=== PATIENT | male | born 1995 | race Caucasian/White ===

== ENCOUNTER 2017-07-24 10:28 | Emergency (ER) | payer MEDICAID ==
[~2017-07-24] VITALS: Ht 157.5 cm; Wt 116.5 kg
[2017-07-24 10:31] VITALS: Ht 157.5 cm; Wt 116.5 kg
--- NOTE | 2017-07-24 12:29 | RADRPT ---
PROCEDURE: XR Ankle. CLINICAL INDICATION: Injury TECHNIQUE: Three views of the right ankle are available for review COMPARISON: None available FINDINGS: There is marked widening of the medial clear space representing deltoid ligament injury. There is di sruption of the ankle mortise. No displaced fractures are identified. The talar dome is smooth. Ther e is marked soft tissue swelling about the ankle and presence of a tibiotalar joint effusion. IMPRESSION: 1. Disruption of the ankle mortise with marked widening of the medial clear space suggesting deltoi d ligament injury. Syndesmotic injury also cannot be excluded. 2. Marked soft tissue swelling and tibiotalar joint effusion. 3. Radiographs of the tibia / fibula are recommended. RPTAT: TT .Merrill Vega MD, MD Date Time Electronically viewed and signed by .Merrill Vega MD, MD on 07/24/2017 12:29 .d/
--- NOTE | 2017-07-24 12:32 | RADRPT ---
PROCEDURE: XR Foot. CLINICAL INDICATION: Foot/ankle injury TECHNIQUE: Three views of the right foot are available for review. COMPARISON: None available FINDINGS: There is no acute osseous or articular abnormality. No evidence for fracture seen at the mid or for efoot. Bone mineral density is preserved. The articular surfaces are smooth without evidence of mar ginal erosions. Os peroneum. Soft tissue swelling seen over the ankle and foot. There is a tibiotala r joint effusion. IMPRESSION: 1. No radiographic evidence for fracture of the mid or forefoot 2. Soft tissue swelling and tibiotalar joint effusion. RPTAT: TT .Merrill Vega MD, MD Date Time Electronically viewed and signed by .Merrill Vega MD, on 07/24/2017 12:32 .d/
--- NOTE | 2017-07-24 14:37 | RADRPT ---
PROCEDURE: Right knee series. CLINICAL INDICATION: Right knee pain TECHNIQUE: Three views of the right knee are available for review. COMPARISON: None available FINDINGS: There is normal mineralization and alignment of the bones of the right knee. No acute fracture or d islocation is identified. No joint effusion is seen. Overlying soft tissues are unremarkable. IMPRESSION: 1. Unremarkable right knee x-ray series. RPTAT: KK .Ambrocio Plaza MD, MD Date Time Electronically viewed and signed by .Ambrocio Plaza MD, on 07/24/2017 14:37 .B/
--- NOTE | 2017-07-24 14:41 | RADRPT ---
PROCEDURE: XR Tibia and Fibula. CLINICAL INDICATION: Right ankle pain. TECHNIQUE: Two views of the right tibia and fibula are available for review. COMPARISON: None available FINDINGS: There is normal mineralization and alignment of the bones of the right tibia and fibula. Again seen is marked widening of the medial mortise use. There is no evidence of proximal fibular fracture. Th ere is diffuse soft tissue swelling. IMPRESSION: 1. Widening of the medial mortise again identified. No evidence of associated proximal fibular frac ture.. RPTAT: KK .Amrbocio Plaza MD, MD Date Time Electronically viewed and signed by .Ambrocio Plaza MD, MD on 07/24/2017 14:41 .B/
[2017-07-24] MEDS ORDERED: IBUP-1542 PO (15:29)
--- NOTE | 2017-07-24 16:02 | ERD ---
ER Documentation Chief Complaint Date/Time DATE: 07/24/17 TIME: 15:54 Chief Complaint Complains of right ankle pain while playing soccer HPI 22-year-old male patient with no significant past medical history presents the ED complaining of right ankle injury sustained 6 days ago. States that he was playing soccer and was jumping up as another player accidentally pushed him and he inverted his right ankle. Describes the pain as throbbing and sharp and rates it a 5 out of 10. States that initially he thought he could ambulate however felt that yesterday the pain had worsened. Denies any head or neck injuries to. Denies any loss of consciousness. He became very bruised and swollen. Denies any fever, chills, loss of sensation, loss of range of motion, nausea, vomiting. ROS All systems reviewed and are negative except as per history of present illness. Medications Home Meds Active Scripts Ibuprofen* (Motrin*) 600 Mg Tab, 600 MG PO Q6, #30 TAB Prov:SYD FELIPE PA-C 07/24/17 Allergies Allergies: Coded Allergies: No Known Allergy (Unverified , 07/24/17) PMhx/Soc Medical and Surgical Hx: pt denies Medical Hx, pt denies Surgical Hx History of Surgery: No Anesthesia Reaction: No Hx Neurological Disorder: No Hx Respiratory Disorders: No Hx Cardiac Disorders: No Hx Psychiatric Problems: No Hx Miscellaneous Medical Probl: No Hx Alcohol Use: No Hx Substance Use: No Hx Tobacco Use: No Smoking Status: Never smoker Physical Exam Vitals Vital Signs Date Time Temp Pulse Resp B/P Pulse Ox O2 Delivery O2 Flow Rate FiO2 07/24/17 10:31 98.6 90 20 123/93 98 Physical Exam Const: [id number], well-nourished. In no acute distress. Head: Atraumatic, normocephalic Eyes: Normal Conjunctiva without injection ENT: Normal external ear, nose and mouth. Neck: Full range of motion. No meningismus. Resp: Clear to auscultation bilaterally. No wheezing, rhonchi, rales, or crackles. No accessory muscle use. No retractions. Cardio: Regular rate and rhythm, no murmurs Skin: No petechiae or rashes Back: No midline tenderness. No CVA tenderness. Ext: No cyanosis, or edema. Cap refill less than 2 seconds. Distal pulses intact bilaterally. Ecchymosis noted on the inferior portion of patient's right medial malleolus. Tenderness to palpation of the lateral and medial malleolus. No deformities noted. Neur: Awake and alert. Normal gait and coordination. Muscle strength 5/5. Sensation intact bilaterally. Psych: Normal Mood and Affect Procedures/MDM 22-year-old male patient with no significant past medical history presents the ED complaining of right ankle injury. Patient is afebrile and nontoxic- appearing. Patient has normal vital signs. Right ankle, right foot x-ray was ordered to further evaluate patient. Patient denied wanting any pain medications. PROCEDURE: XR Ankle. CLINICAL INDICATION: Injury TECHNIQUE: Three views of the right ankle are available for review COMPARISON: None available FINDINGS: There is marked widening of the medial clear space representing deltoid ligament injury. There is disruption of the ankle mortise. No displaced fractures are identified. The talar dome is smooth. There is marked soft tissue swelling about the ankle and presence of a tibiotalar joint effusion. IMPRESSION: 1. Disruption of the ankle mortise with marked widening of the medial clear space suggesting deltoid ligament injury. Syndesmotic injury also cannot be excluded. 2. Marked soft tissue swelling and tibiotalar joint effusion. 3. Radiographs of the tibia / fibula are recommended. PROCEDURE: XR Foot. CLINICAL INDICATION: Foot/ankle injury TECHNIQUE: Three views of the right foot are available for review. COMPARISON: None available FINDINGS: There is no acute osseous or articular abnormality. No evidence for fracture seen at the mid or forefoot. Bone mineral density is preserved. The articular surfaces are smooth without evidence of marginal erosions. Os peroneum. Soft tissue swelling seen over the ankle and foot. There is a tibiotalar joint effusion. IMPRESSION: 1. No radiographic evidence for fracture of the mid or forefoot 2. Soft tissue swelling and tibiotalar joint effusion. This patient was discussed with Antonio Fry MD, orthopedic physician who stated that we can proceed with further evaluating patient with a right knee and tib-fib x-ray. PROCEDURE: XR Tibia and Fibula. CLINICAL INDICATION: Right ankle pain. TECHNIQUE: Two views of the right tibia and fibula are available for review. COMPARISON: None available FINDINGS: There is normal mineralization and alignment of the bones of the right tibia and fibula. Again seen is marked widening of the medial mortise use. There is no evidence of proximal fibular fracture. There is diffuse soft tissue swelling. IMPRESSION: 1. Widening of the medial mortise again identified. No evidence of associated proximal fibular fracture.. PROCEDURE: Right knee series. CLINICAL INDICATION: Right knee pain TECHNIQUE: Three views of the right knee are available for review. COMPARISON: None available FINDINGS: There is normal mineralization and alignment of the bones of the right knee. No acute fracture or dislocation is identified. No joint effusion is seen. Overlying soft tissues are unremarkable. IMPRESSION: 1. Unremarkable right knee x-ray series. Patient is placed in a posterior ankle splint. Non-weight bearing recommended. No sports until cleared by orthopedic physician. Patient has his own crutches to aid with ambulation. Splint Assessment: Neurovascularly intact pre and post splint placement with good fit. Patient's extremity symptoms have stabilized while they have been evaluated in the department and are appropriate for outpatient follow up. No evidence of proximal fibular facture, dislocations, compartment syndrome, neurologic injury , vascular injury, open joint, open fracture, tendon laceration, septic arthritis, osteomyelitis, DVT, foreign body, or other emergent conditions. Discharge medications: Ibuprofen Follow up with orthopedic physician 1-2 days. Instructed patient to return to the ED sooner for any worsening symptoms. Patient's questions were answered. Patient understood and agreed with discharge plan. Patient discharged stable. Departure Diagnosis: Primary Impression: Ankle injury Encounter type: initial encounter Laterality: right Qualified Code: S99.911A - Injury of right ankle, initial encounter Condition: Stable Patient Instructions: Fracture, Ankle (General) Referrals: [facility] YOU HAVE RECEIVED A MEDICAL SCREENING EXAM AND THE RESULTS INDICATE THAT YOU DO NOT HAVE A CONDITION THAT REQUIRES URGENT TREATMENT IN THE EMERGENCY DEPARTMENT. FURTHER EVALUATION AND TREATMENT OF YOUR CONDITION CAN WAIT UNTIL YOU ARE SEEN IN YOUR DOCTORS OFFICE WITHIN THE NEXT 1-2 DAYS. IT IS YOUR RESPONSIBILITY TO MAKE AN APPOINTMENT FOR FOLOW-UP CARE. IF YOU HAVE A PRIMARY DOCTOR --you should call your primary doctor and schedule an appointment IF YOU DO NOT HAVE A PRIMARY DOCTOR YOU CAN CALL OUR PHYSICIAN REFERRAL HOTLINE AT IF YOU CAN NOT AFFORD TO SEE A PHYSICIAN YOU CAN CHOSE FROM THE FOLLOWING [facility] [address] [facility]. [facility] [address] [facility] [address] [facility] [address] [facility] [address] [facility]. [facility] [address] [facility]. [facility] YOU HAVE RECEIVED A MEDICAL SCREENING EXAM AND THE RESULTS INDICATE THAT YOU DO NOT HAVE A CONDITION THAT REQUIRES URGENT TREATMENT IN THE EMERGENCY DEPARTMENT. FURTHER EVALUATION AND TREATMENT OF YOUR CONDITION CAN WAIT UNTIL YOU ARE SEEN IN YOUR DOCTORS OFFICE WITHIN THE NEXT 1-2 DAYS. IT IS YOUR RESPONSIBILITY TO MAKE AN APPOINTMENT FOR FOLOW-UP CARE. IF YOU HAVE A PRIMARY DOCTOR --you should call your primary doctor and schedule and appointment IF YOU DO NOT HAVE A PRIMARY DOCTOR YOU CAN CALL OUR PHYSICIAN REFERRAL HOTLINE AT . IF YOU CAN NOT AFFORD TO SEE A PHYSICIAN YOU CAN CHOSE FROM THE FOLLOWING [facility] INSTITUTIONS: [facility] [address] [place] [address] [facility] [address] [place] [address] [facility] [address] [place] [address] [facility] 7 a.m.- 11 p.m. Every Day of the Week NO APPOINTMENT OR AUTHORIZATION NEEDED [facility] Hours: Mon-Fri 9:00 AM - 5:00 PM Additional Instructions: Your right ankle is unstable. Do not bear weight on the right foot. No sports or walking with right foot until cleared by orthopedic physician. FOLLOW UP WITH YOUR PRIMARY CARE PHYSICIAN TOMORROW.Return to this facility if you are not improving as expected - fever, chills, increased redness or swelling, loss of sensation, loss of range of motion, etc. SYD FELIPE PA-C Jul 24, 2017 16:02
== END 2017-07-24 15:58 | disposition home or self-care (01) ==
LOC: FTE 10:28
DX: S99.911A Unspecified injury of right ankle, initial encounter (principal); X50.9XXA Other and unspecified overexertion or strenuous movements or postures, initial encounter; Y92.9 Unspecified place or not applicable
CPT/HCPCS: 29515; 73562; 73590; 73610; 73630; Z7502